=== PATIENT | female | born 1990 | race Hispanic/Latino ===

== ENCOUNTER 2017-10-02 02:11 | Emergency (ER) | payer SELFPAY ==
[2017-10-02] MEDS ORDERED: Ketorolac Tromethamine 30 MG/ML VIAL ONE (02:23)
[2017-10-02 02:41] LABS: #Basophils 0.2 thou/uL (0.0-0.2); #Eosinphils 0.2 thou/uL (0.0-0.7); #Lymphocytes 3.5 thou/uL (1.20-3.40); #Monocytes 0.7 thou/uL (0.11-0.59); #Neutrophils 5.3 thou/uL (1.40-6.50); %Basophils 1.9 % (0.0-1.0); %Eosinophils 1.8 % (0.0-10.0); %Lymphocytes 35.8 % (21.0-51.0); %Monocytes 7.1 % (0.0-10.0); %Neutrophils 53.5 % (42.0-75.0); Hemoglobin 13.2 g/dL (12.0-16.0); Mean Corpuscular HGB CONC 35.1 g/dL (32.0-36.0); Mean Corpuscular Hemoglobin 27.9 pg (27.0-31.0); Mean Corpuscular Volume 79.7 fL (78.0-98.0); Mean Platelet Volume 6.4 fL (7.4-10.4); Platelet Count 306 thou/uL (130-400); RBC Distribution Width 12.5 % (11.5-14.5); Red Blood Cell (RBC) Count 4.74 mill/uL (4.20-5.40); White Blood Cell (WBC) Count 9.8 thou/uL (4.8-10.8)
[2017-10-02 02:44] LABS: Bilirubin Negative (Negative); Blood, Urine Negative (Negative); Clarity Hazy (Clear); Glucose, Urine (Dipstick) Negative (Negative); Leukocyte Trace (Negative); Nitrite Negative (Negative); Protein, Urine (Dipstick) Negative (Neg-Trace); Specific Gravity, Urine 1.015 (1.005-1.030); Urobilinogen 0.2 mg/dL (0.2-1.0); pH, Urine 6.5 (5.0-9.0)
[2017-10-02 02:45] LABS: Pregnancy Test - Urine (BHCG) Negative (Negative); Pregu Control Background? CLEAR/WHITE (CLR/WHITE); Pregu Control Bar Appear? YES (CONTROL BAR); Specific Gravity 1.012 (1.002-1.036)
[2017-10-02 02:51] LABS: Bacteria/HPF Rare-Few HPF (None Seen); Other Microscopic Description FEW CLUE CELLS; RBC/HPF 0-3 HPF (0-3); Transitional Epithelial 0-3 HPF (0-3)
[2017-10-02 02:56] LABS: ALT (SGPT) 21 U/L (8-55); AST (SGOT) 16 U/L (5-34); Albumin 4.4 g/dL (3.5-5.0); Alkaline Phosphatase 75 U/L (40-150); Anion Gap 13 mmol/L (10-20); BUN (Urea Nitrogen) 10 mg/dL (7.0-18.7); Bilirubin, Total 0.4 mg/dL (0.2-1.2); Calc. Creatinine Clearance 0 mL/min (70-130); Calcium 9.3 mg/dL (7.8-10.44); Carbon Dioxide 25 mmol/L (22-29); Chloride 104 mmol/L (98-107); Estimated GFR-MDRD Greater than 90; Glucose 104 mg/dL (70-105); Lipase 22 U/L (8-78); Potassium 4.1 mmol/L (3.5-5.1); Protein, Total 7.4 g/dL (6.0-8.3); Sodium 138 mmol/L (136-145)
--- NOTE | 2017-10-02 08:25 | CT ---
PRELIMINARY REPORT/[facility]/EMERGENTY AFTER-HOURS PROCEDURE CT Abdomen and Pelvis With Intravenous Contrast CLINICAL HISTORY: 27 years old, female; Right lower quadrant (rlq) abd pain / nausea. IV contrast only per er md. TECHNIQUE: Axial computed tomography images of the abdomen and pelvis with intravenous contrast. All CT scans at this facility use at least one of these dose optimization techniques: automated exposure control; mA and/or kV adjustment per patient size (includes targeted exams where dose is matched to clinical indication); or iterative reconstruction. Coronal and sagittal reformatted images were creat ed and reviewed. CONTRAST: 100 mL of ISOVUE 370 administered intravenously. COMPARISON: No relevant prior studies available. FINDINGS: Lung bases: Unremarkable. No mass. No consolidation. ABDOMEN: Liver: Unremarkable. No mass. Gallbladder and bile ducts: Unremarkable. No calcified stones. No ductal dilation. Pancreas: Unremarkable. No mass. No ductal dilation. Spleen: Unremarkable. No splenomegaly. Adrenals: Unremarkable. No mass. Kidneys and ureters: Unremarkable. No solid mass. No hydronephrosis. Stomach and bowel: Unremarkable. No obstruction. No mucosal thickening. PELVIS: Appendix: Normal appendix. Bladder: Unremarkable. No mass. Reproductive: 2.5 x 2.6 cm right ovarian cyst. ABDOMEN and PELVIS: Intraperitoneal space: Trace free fluid within the cul-de-sac. No free air. Bones/joints: No acute fracture. No dislocation. Soft tissues: Small fat-containing umbilical hernia. Vasculature: Unremarkable. No abdominal aortic aneurysm. Lymph nodes: Unremarkable. No enlarged lymph nodes. IMPRESSION: 1. Normal appendix. 2. 2.5 x 2.6 cm right ovarian cyst. 3. Trace free fluid within the cul-de-sac. Thank you for allowing us to participate in the care of your patient. Dictated and Authenticated by: Trevor Ramírez MD 10/02/2017 5:09 AM Central Time ([place] & [place]) FINAL REPORT CT ABDOMEN AND PELVIS WITH CONTRAST: DTAE: 10/02/17. FINDINGS: Spiral CT of the abdomen and pelvis was done for evaluation of right lower quadrant pain with nausea. Axial slices were acquired, then coronal and sagittal reconstructions were done. Oral contrast was withheld by request. The lung bases are clear. The liver, spleen, pancreas, gallbladder, adrenal glands, kidneys, and abd ominal aorta appear normal. The bowel shows no distention. The appendix appears normal. There is no inflammatory change around bowel. No free air or substantial free fluid was seen. CT of the pelvis was remarkable for a 2.8 cm cyst in the right adnexal region. The left adnexa appea rs normal. Fluid is seen in the endometrial canal. There may be a trace of fluid in the cul-de-sac, but certainly no more than a physiologic amount. IMPRESSION: 1. A 2.8 cm right ovarian cyst. 2. Normal appendix. Report in agreement with preliminary reading by [email or web address]. POS: HOME
[2017-10-02] MEDS ORDERED: Iopamidol 370 76% 100 ML VIAL ONE (09:00)
== END 2017-10-02 07:23 | disposition home or self-care (01) ==
LOC: BURERS 02:11
DX: N83.201 Unspecified ovarian cyst, right side (principal); Z79.899 Other long term (current) drug therapy
CPT/HCPCS: 74177; 80053; 81003; 81015; 81025; 83605; 83690; 85025; 96374; A4216; J1885

== ENCOUNTER 2017-12-18 17:14 | Emergency (ER) | payer OTHER, SELFPAY ==
[2017-12-18] MEDS ORDERED: Ondansetron ODT 4 MG TAB ONE (17:27)
[2017-12-18] MEDS ORDERED: Ibuprofen 800 MG TAB ONE (17:27)
[2017-12-18] MEDS ORDERED: Bicillin LA 1.2 MILLION UNITS/2 ML SYRINGE ONE (17:46)
== END 2017-12-18 18:04 | disposition home or self-care (01) ==
LOC: BURERS 17:14
DX: J02.0 Streptococcal pharyngitis (principal)
CPT/HCPCS: 87430; 87804; 96372; J0561; Q0162

== ENCOUNTER 2020-07-11 21:56 | Emergency (ER) | payer OTHER, SELFPAY ==
[2020-07-11] MEDS ORDERED: traMADol HCl 50 MG TAB ONE (23:05)
[2020-07-11] MEDS ORDERED: Ibuprofen 200 MG TAB ONE ×3 (23:05→23:09)
== END 2020-07-11 23:10 | disposition home or self-care (01) ==
LOC: BURERS 21:56
DX: S16.1XXA Strain of muscle, fascia and tendon at neck level, initial encounter (principal); S00.03XA Contusion of scalp, initial encounter; W22.8XXA Striking against or struck by other objects, initial encounter; W18.30XA Fall on same level, unspecified, initial encounter
CPT/HCPCS: 70450

== ENCOUNTER 2020-10-25 04:27 | Emergency (ER) | payer SELFPAY ==
[2020-10-25] MEDS ORDERED: HYDROcodone/Acetaminophen 5/325 mg Tablet ONE (04:47)
[2020-10-25] MEDS ORDERED: Neomycin-Polymyxin-Hc 7.5 ML BOT ONE (04:48)
== END 2020-10-25 05:05 | disposition home or self-care (01) ==
LOC: BURERS 04:27
DX: H60.502 Unspecified acute noninfective otitis externa, left ear (principal)
CPT/HCPCS: 99282

== ENCOUNTER 2021-04-10 01:23 | Emergency (ER) | payer SELFPAY ==
[2021-04-10] MEDS ORDERED: hydrOXYzine 25 MG TAB ONE (01:51)
== END 2021-04-10 01:53 | disposition home or self-care (01) ==
LOC: BURERS 01:23
DX: F41.9 Anxiety disorder, unspecified (principal); R06.4 Hyperventilation
CPT/HCPCS: 99283

== ENCOUNTER 2021-07-29 02:19 | Emergency (ER) | payer SELFPAY ==
[2021-07-29] MEDS ORDERED: Amoxicillin/Potassium Clav 875 MG TAB ONE (03:16)
[2021-07-29] MEDS ORDERED: Ciprofloxacin 500 MG TAB ONE (03:16)
[2021-07-29] MEDS ORDERED: Acetaminophen 500 MG TAB ONE (03:18)
== END 2021-07-29 03:22 | disposition home or self-care (01) ==
LOC: BURERS 02:19
DX: H60.501 Unspecified acute noninfective otitis externa, right ear (principal)
CPT/HCPCS: 99282

== ENCOUNTER 2021-08-01 00:57 | Emergency (ER) | payer SELFPAY ==
[2021-08-01] MEDS ORDERED: Tetracaine 0.5% PF 4 ML BOT ONE (01:32)
[2021-08-01] MEDS ORDERED: traMADol HCl 50 MG TAB ONE (01:32)
[2021-08-01] MEDS ORDERED: cefTRIAXone\\ROCEPHIN 1 GM VIAL ONE ×2 (01:34→01:44)
[2021-08-01] MEDS ORDERED: Lidocaine 1% PF 5 ML VIAL ONE (01:35)
== END 2021-08-01 02:01 | disposition home or self-care (01) ==
LOC: BURERS 00:57
DX: H60.501 Unspecified acute noninfective otitis externa, right ear (principal); E66.01 Morbid (severe) obesity due to excess calories
CPT/HCPCS: 96372; 99282; J0696

== ENCOUNTER 2023-04-11 14:12 | Emergency (ER) | payer SELFPAY | END 2023-04-11 14:48 | disposition home or self-care (01) | LOC: BURERS 14:12 | DX: M79.641 Pain in right hand (principal); W61.39XA Other contact with chicken, initial encounter; Y99.0 Civilian activity done for income or pay ==